=== PATIENT | male | born 1940 | race Caucasian/White ===

== ENCOUNTER 2016-10-27 09:18 | Inpatient (IN) | payer MEDICARE, BC ==
[~2016-10-27] VITALS: Ht 170.2 cm; Wt 108.9 kg
--- NOTE | ~2016-10-27 | ECH ---
Transthoracic Echocardiography Report (TTE) Demographics Patient Name MATTHIEU GUAJARDO Date of Study 10/27/2016 ELIZABETH Patient Number [id number] Visit Number [id number] Date of 1940 Room Number 428 Accession Number [id number] Gender Male Age 76 year(s) Referring Renate Hernandez MD Human Resources Project Coordinator Vicki Lee Physician RDCS Physician Interpreting Natacha OBRIEN Oreman Physician Uche Supervising Ordering Physician Renate Hernandez MD/[place] OBRIEN Nurse Stress Arts Administrator Or Manager Conclusions Contractility Score Summary Global Left Ventricular Hypokinesis was noted. Summary Technically good exam. The estimated left ventricular ejection fraction is 25-30%. The left ventricle is moderately dilated . Mild concentric left ventricular hypertrophy. Normal right ventricle structure with reduced function. The left atrium is severely dilated by LA volume index measurement. The right atrium is moderately dilated. Moderate to severe mitral regurgitation by color Doppler. There is mild aortic regurgitation by color Doppler. Mild-moderate tricuspid regurgitation by color Doppler. There is mild pulmonary hypertension. The pulmonary pressure (RVSP) is 39 mmHg. Recommendation The patient will be given the results of this study by the physician who ordered the exam. Procedure Type of Study TTE procedure:Echo Complete SF. Procedure Date Date: 10/27/2016 Start: 02:30 PM Technical Quality: Good visualization Indications:Congestive heart failure, Dyspnea with exertion, Atrial fibrillation, Elevated Troponin, Coronary artery disease, Diabetes, pacemaker/defibrillator and History of CABG. Additional Indications:History of stent Appropriate Use Criteria: 9 Height: 67 inches Weight: 247 pounds BSA: 2.21 m Rhythm: Paced HR: 73 bpm BP: 122/72 mmHg M-Mode/2D Measurements LV Diastolic Dimension: 6.55 cm LV Systolic Dimension: 5.65 cm LV Septum Diastolic: 1.14 cm LV PW Diastolic: 1.16 cm AO Root Dimension: 3.37 cm Cardiac Output: 4.13 l/min LA Dimension: 5.23 cm Cardiac Index: 1.87 l/min*m RV Diastolic Dimension: 4.2 cm LA volume index: 58 ml/m LVOT: 2.13 cm LVOT VTI: 15.89 cm RV Base: 3.8 cm LV Stroke volume: 56.59 ml RV Mid: 2.2 cm LV Stroke volume index: 25.61 ml/m TAPSE: 1.5 cm TDI-S': 8 cm/s Doppler Measurements AV Peak Velocity: 1.1 m/s MV Peak E-Wave: 1.43 m/s AV Peak Gradient: 4.84 mmHg AV Mean Gradient: 2.29 mmHg MV P1/2t: 71.4 msec LVOT Peak Velocity: 0.88 m/s AV Area (Continuity):4.16 cm AV P1/2t: 426.6 msec MV Area (PHT): 3.08 cm TR Velocity:2.99 m/s PV Peak Velocity: 0.83 m/s TR Gradient:35.76 mmHg PV Peak Gradient: 2.76 mmHg Estimated RAP:3 mmHg Estimated PASP: 38.76 mmHg Estimated RVSP: 39 mmHg E' Septal Velocity: 0.09 m/s E' Lateral Velocity: 0.12 m/s RA Area: 25.05 cm Findings Left Ventricle The left ventricle is moderately dilated . Mild concentric left ventricular hypertrophy. Diastolic function indeterminate due to patient's arrhythmia. Right Ventricle Normal right ventricle structure with reduced function. Left Atrium The left atrium is severely dilated by LA volume index measurement. Right Atrium The right atrium is moderately dilated. Mitral Valve Normal mitral valve structure and function. Moderate to severe mitral regurgitation by color Doppler. Aortic Valve The aortic valve is mildly sclerotic. There is mild aortic regurgitation by color Doppler. Tricuspid Valve Normal tricuspid valve structure and function. Mild-moderate tricuspid regurgitation by color Doppler. There is mild pulmonary hypertension. The pulmonary pressure (RVSP) is 39 mmHg. Pulmonic Valve Normal pulmonic valve structure and function. Mild pulmonic valve regurgitation by color Doppler. Pericardial Effusion No evidence of pericardial effusion. Miscellaneous Visualized portions of the aortic root and ascending aorta appear normal in size. Pleural Effusion No evidence of pleural effusion. Contractility Score LV regional wall motion:(0-Non visualized 1-Normal 2-Hypokinesis 3-Akinesis 4-Dyskinesis 5-Aneurysm) Signature
--- NOTE | 2016-10-27 14:22 | ER ---
ADMIT: 10/27/2016 RM/LOC: [facility] MR#: [id number] 26[address] [facility] [address] [place], [place] [address] MATTHIEU GUAJARDO ELIZABETH [address] [place] [address] Emergency Room Report SEX: M AGE: 76 : 1940 DATE: 10/27/2016 TIME: 0918 hours. Please refer to my T-sheet for complete H and P. Briefly, the patient is a 76-year-old who has a known history of heart disease. He has had a bypass in 2001, he had a stent in 2015, and a pacer in 2015. He has a history of atrial fibrillation, he takes Coumadin. He states though the last couple days he has had significant dyspnea on exertion. He was at the hospital visiting son who had an elective surgery when he noticed that he could hardly walk down the hercules. He got really short of breath. They had to sit down. His says it is getting worse for the last 24-48 hours. His legs have not been swollen more than usual. He has been taking all his medications. PHYSICAL EXAMINATION: VITAL SIGNS: Blood pressure 136/68, pulse 78, respirations 20, temp 98, and sat 94%. GENERAL: He is in no acute distress. HEENT: Grossly normal. LUNGS: Clear. HEART: Regular. ABDOMEN: Soft. EXTREMITIES: He has 1+ edema. EMERGENCY DEPARTMENT COURSE: His EKG was paced, rate 70. CBC normal except platelets 141. Chemistries normal except glucose 213. Troponin 0.13. His BNP was 4212. His INR was 1.73. I gave him 4 aspirin, Lasix 60 mg IV. He had no symptoms while at rest. I talked to Dr. Dewitt, will admit to the hospital. ASSESSMENT: 1. Acute dyspnea on exertion. 2. Elevated troponin. 3. Congestive heart failure. PLAN: Admit to the hospital. Gigi Hoff MD/ troy JOB #: [id number] CC: Gigi Hoff MD, Attending Physician UNKNOWN, Family Physician
[2016-10-31] MEDS ORDERED: AVODART0.5 MG PO (13:52)
[2016-10-31] MEDS ORDERED: PROZAC40 MG PO (13:52)
[2016-10-31] MEDS ORDERED: NITROSTAT0.4 MG SL (13:52)
[2016-10-31] MEDS ORDERED: MICRO-K DPS10 MEQ PO (13:53)
[2016-10-31] MEDS ORDERED: ZOCOR DPS40 MG PO (13:53)
[2016-10-31] MEDS ORDERED: ZESTRIL DPS10 MG PO (13:53)
[2016-10-31] MEDS ORDERED: COUMADIN4 MG PO (13:53)
[2016-10-31] MEDS ORDERED: DESYREL DPS100 MG PO (13:53)
[2016-10-31] MEDS ORDERED: CALCIUM + VITA1 EACH PO (13:54)
[2016-10-31] MEDS ORDERED: FLOMAX DPS0.4 MG PO (13:54)
[2016-10-31] MEDS ORDERED: LASIX DPS40 MG PO (13:54)
[2016-10-31] MEDS ORDERED: ECOTRIN81 MG PO (13:54)
[2016-10-31] MEDS ORDERED: VITAMIN C1000 MG PO (13:55)
[2016-10-31] MEDS ORDERED: L-LYSINE500 M1 PO (13:55)
[2016-10-31] MEDS ORDERED: VITAMIN D-32000 UNI1 PO (13:55)
[2016-10-31] MEDS ORDERED: CARVEDILOL3.125 MG PO (13:56)
[2016-10-31] MEDS ORDERED: ZINC50 M1 PO (13:56)
--- NOTE | 2016-11-02 10:30 | CO ---
ADMIT: 10/27/2016 RM/LOC: [address] [facility] MR#: [id number] 2620 [facility] [address] [place], [place] [address] MATTHIEU GUAJARDO [address] [place] [address] Consultation SEX: M AGE: 76 : 1940 DATE OF CONSULTATION: 10/28/2016 ATTENDING PHYSICIAN: Renny Dewitt CONSULTING PHYSICIAN: uGs Melara MD CHIEF COMPLAINT: Shortness of breath. HISTORY OF THE PRESENT ILLNESS: The patient is a 76-year-old male, who has a long-standing history apparently of coronary disease, atrial fibrillation, pacemaker placement, who presented with shortness of breath. He states for the last couple of days, he has noticed that he has been more short of breath especially with activity. When he walks several feet, he will get short of breath and this has been unusual for him. He has not really appreciated a lot of edema, but after receiving some Lasix, he states that he has had some diuresis. He has a previous history of heart disease including bypass surgery, stenting, atrial fibrillation, and pacemaker placement, but has never been told that he is aware that his heart muscle is weak. He also was noted to have a mildly elevated troponin. We are seeing him for further evaluation. PAST MEDICAL HISTORY: Significant for: 1. Three-vessel bypass surgery performed in 2001. 2. History of heart catheterizations in the past, the most recent in 2015, at which time he got a stent. 3. History of a left and right total knee arthroplasties. 4. Cataract surgery. 5. History of back surgery due to a herniated disk. 6. Cholecystectomy. 7. History of compartmental syndrome requiring fasciotomy in 2013 of his right leg with a skin graft afterwards. 8. Right shoulder surgery x2. 9. History of pacemaker placement in February of 2016. 10.Permanent atrial fibrillation. 11.BPH. 12.Hypertension. 13.Hyperlipidemia. ALLERGIES: APPEARS NONE. MEDICATIONS: Current hospital medications include: 1. Aspirin 81 mg daily. 2. Avodart 0.5 mg daily. 3. Caltrate with vitamin D 600 mg daily. 4. Coumadin daily. 5. Desyrel 100 mg at night. 6. Flomax 0.4 mg daily. 7. Lasix 20 mg daily. 8. Micro-K 10 mEq at night. 9. Prozac 40 mg daily. ADMIT: 10/27/2016 RM/LOC: 428 [facility] MR#: [id number] [address] [address] MATTHIEU GUAJARDO [address] [place] [address] Consultation SEX: M AGE: 76 : 1940 10.Vitamin D 2000 units daily. 11.Zestril 10 mg daily. 12.Zocor 40 mg at night. FAMILY HISTORY: The patient thinks that his father may have had coronary disease. He is unaware of anybody else with coronary disease. SOCIAL HISTORY: The patient has previous history of smoking a pipe and cigars, but no regular cigarette use. No significant alcohol use. 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 REVIEW OF SYSTEMS: GENERAL: Denies fatigue, fever, chills, sweats, rash, or weight loss. EYES: Denies double vision, blurred vision, cataracts, or glaucoma. ENT: Denies hearing loss or problems with nose, mouth or throat. PULMONARY: He has some occasional shortness of breath. Denies cough, sputum production, asthma, emphysema or bronchitis. Denies snoring loudly, wakefulness at night, or fatigue upon awakening. GASTROINTESTINAL: Denies heartburn or difficulty swallowing. No change in bowel habits. Denies dark or bloody stools. No history of ulcers, hiatal hernia, or gallbladder or liver disease. GENITOURINARY: He has occasional dysuria and some constipation. Denies hematuria, nocturia, urinary tract infection, or kidney stones. Denies history of renal insufficiency or failure. MUSCULOSKELETAL: He does have some leg pain and arm pain. Denies history of arthritis or gout. ENDOCRINE: Denies history of thyroid dysfunction or diabetes. HEMATOLOGIC: Denies history of anemia, easy bruising, or cancer. NEUROLOGIC: Denies chronic headaches, dizziness, syncope, stroke, seizures or numbness or tingling. PSYCHIATRIC: Denies history of mental illness or feelings of depression. PHYSICAL EXAMINATION: VITAL SIGNS: Blood pressure 122/71, heart rate 60, respirations 18, temperature 96.9 degrees Fahrenheit. SKIN: [place], warm and dry. EYES: Sclerae clear. No xanthelasmas. ENT: Oral mucosa is pink and moist. No jugular venous distention or carotid bruits. CHEST: Lungs having diminished breath sounds. HEART: Regular rate and rhythm. Normal S1, S2. No murmurs, rubs or gallops. ABDOMEN: Soft and nontender. MUSCULOSKELETAL: Gait is normal. EXTREMITIES: Having mild edema. Peripheral pulses palpable. No clubbing or cyanosis. PSYCHIATRIC: Alert and oriented. Mood and affect are appropriate. ASSESSMENT: 1. Acute on chronic systolic heart failure. ADMIT: 10/27/2016 RM/LOC: 428 [facility] MR#: [id number] [address] [place] [id number] MATTHIEU GUAJARDO [address] [place] [address] Consultation SEX: M AGE: 76 : 1940 2. Ischemic cardiomyopathy. 3. Permanent atrial fibrillation. 4. Coronary artery disease. 5. Permanent pacemaker. 6. Hypertension. PLAN: The patient's echocardiogram shows that his ejection fraction looks to be in the 35% range. This may be new, although it is unsure whether he has been told of this diagnosis. We will continue with diuresis as I believe most of his symptoms are acute on chronic systolic heart failure. He also has a mildly elevated troponin which has remained stable. If he has not had an ischemic evaluation recently, this also may need to occur. He does have a pacemaker in place. His ejection fraction is down, so I would like to get records to see if this is known, and if his ejection fraction was normal in the past, probably needs a repeat heart catheterization. We will decide further management and treatment after we see the results of his testing and his records. I am also going to add Coreg 3.125 mg twice daily to his current med regimen. Gus Melara MD/ troy JOB #: [id number] CC: Renny Dewitt, Attending Physician Renny Dewitt, Family Physician Renny Dewitt MD
--- NOTE | 2016-11-03 12:00 | DS ---
ADMIT: 10/27/2016 RM/LOC: 428 [facility] MR#: [id number] 26[address] [facility] [address] [place], [place] [address] MATTHIEU GUAJARDO ELIZABETH [facility] [place] [address] Discharge Summary SEX: M AGE: 76 : 1940 ADMISSION DATE: 10/27/2016 DISCHARGE DATE: 10/30/2016 ATTENDING AT TIME OF DISCHARGE: Damion Barrett MD. ADMITTING PHYSICIAN: Renny Dewitt MD. FINAL DIAGNOSES: 1. Ekexj-as-hlxaovo systolic heart failure exacerbation. 2. Elevated troponin, equivocal. 3. Coronary artery disease, status post coronary bypass. 4. A fib (atrial fibrillation), on chronic anticoagulation. 5. Obstructive sleep apnea. 6. History of back surgery, cholecystectomy, compartmental syndrome with fasciotomy, shoulder surgery, history of pacemaker placement. 7. BPH (benign prostatic hypertrophy). 8. Hypertension. 9. Hyperlipidemia. 10.History of total knee replacements bilaterally. REASON FOR ADMISSION: Increasing shortness of breath. HOSPITAL COURSE: The patient was admitted. He had a very mildly elevated troponin, which was essentially equivocal. Likely related to exacerbation of acute systolic heart failure exacerbation. The patient was given IV diuresis with a 7 pound weight loss. Kidney function remained stable. INR at 2 at time of discharge. In regard to his atrial fibrillation and anticoagulation, he was seen in evaluation by Cardiology, Dr. Melara and Dr. Lenz. He overall felt symptomatically much improved. Prospect okay for discharge to home with plan for followup with Dr. Davila in [place] when next available, increased oral diuretic, PT/INR, BMP at PCP's office within the week. He overall felt improved at time of discharge. DISCHARGE MEDICATIONS: Please see discharge MAR, which I fully reviewed. He will essentially be on his home medications except we will increase his Lasix from 20 mg to 40 mg a day. He will otherwise notably be on warfarin 4 mg a day. Please see discharge MAR for full details otherwise. He will have a PT/INR and BMP at followup in his primary care provider's office in 1 week as well as forwarding this to his teradata architect, Dr. Davila. Damion Barrett MD/ jessy JOB #: [id number] CC: Renny Dewitt MD, Attending Physician Renny Dewitt MD, Family Physician ADMIT: 10/27/2016 RM/LOC: [address] [facility] MR#: [id number] [address] [address] MATTHIEU GUAJARDO [address] [place] [address] Discharge Summary SEX: M AGE: 76 : 1940 Leonidas Davila MD
--- NOTE | 2016-11-20 08:54 | HP ---
ADMIT: 10/27/2016 RM/LOC: 428 [facility] MR#: [id number] 2620 [facility] [address] [place], [place] [address] MATTHIEU GUAJARDO [facility] [place] [address] History and Physical SEX: M AGE: 76 : 1940 DATE OF SERVICE: CHIEF COMPLAINT: Shortness of breath. HISTORY OF PRESENT ILLNESS: This is a 76-year-old gentleman walking to cafeteria today was noted to be having increased shortness of breath. He presented to the emergency room. He was found to be in heart failure, so he was admitted, he was also needing a little oxygen. He says he just has been more winded of late. He thinks he has been swelling up a little bit in his belly which is not necessarily new for him, but thinks it is getting worse. He has been progressively getting to be more winded over the past month, he thinks. He has some associated trouble breathing. Denies overt chest pain, however. PAST HISTORY: Significant for coronary artery disease, arthritis, degenerative disk disease in his back, history of compartment syndrome of the right leg, he has had atrial fibrillation, BPH, hypertension, and hyperlipidemia. SURGERIES: Include pacemaker; fasciotomy in 2013, right leg with skin graft placement; he has had a cholecystectomy; back surgery; bilateral total knee arthroplasties; 3-vessel bypass in 2001; had a stent placed in 2016 with a heart cath. ALLERGIES: NONE. MEDICATIONS: See his admission medication list. FAMILY HISTORY: I think his dad had heart disease, but unknown. The patient has a previous history of smoking a pipe and cigars. He is retired school curriculum developer and occasional farming now. REVIEW OF SYSTEMS: Other complete review of systems obtained and negative except as above. PHYSICAL EXAMINATION: VITAL SIGNS: Temp 98.1, pulse 67, respirations 20, blood pressure 122/72, oxygen saturation 100% on 2 L of oxygen by nasal cannula. GENERAL: This is an overweight appearing 76-year-old gentleman in no apparent distress. He is alert and oriented. HEENT: Pupils are equal, round, and reactive to light and accommodation. Extraocular muscles intact. Throat clear. NECK: Supple. LUNGS: Clear bilaterally. HEART: Irregular regular and diminished. ABDOMEN: Protuberant and mildly distended. EXTREMITIES: Lower extremities have 3+ pitting edema to lower extremities bilaterally. SKIN: Pale, warm, and dry. ADMIT: 10/27/2016 RM/LOC: 428 [facility] MR#: [id number] [address] [address] MATTHIEU GUAJARDO [address] [place] [address] History and Physical SEX: M AGE: 76 : 1940 NEURO: He can move all extremities equally bilaterally, but he is quite weak. LABORATORY AND X-RAY DATA: Initial workup for ischemia is negative. ASSESSMENT/PLAN: 1. Shortness of breath. 2. Congestive heart failure, acute systolic on chronic systolic with diastolic component as well. We did have a mildly elevated troponin. 3. Coronary artery disease. 4. Possible history of diabetes. He will be admitted to telemetry. Watch his troponin, trend closely. I suspect it is not an NV, but related to heart failure. Check an echo and continue to diurese and we will go from there. Renny Dewitt MD/ troy JOB #: [id number] CC: Renny Dewitt MD, Attending Physician Renny Dewitt MD, Family Physician
== END 2016-10-30 12:35 | disposition home or self-care (01) | DRG 293 ==
LOC: ER 09:18 → 4PCU 11:25
PROVIDERS: ADMIT Internal Medicine
DX: I11.0 Hypertensive heart disease with heart failure (principal); I48.2 Chronic atrial fibrillation; I25.5 Ischemic cardiomyopathy; I34.0 Nonrheumatic mitral (valve) insufficiency; I50.23 Acute on chronic systolic (congestive) heart failure; E78.5 Hyperlipidemia, unspecified; N40.0 Benign prostatic hyperplasia without lower urinary tract symptoms; G47.33 Obstructive sleep apnea (adult) (pediatric); K59.00 Constipation, unspecified; Z95.1 Presence of aortocoronary bypass graft; Z95.5 Presence of coronary angioplasty implant and graft; Z95.0 Presence of cardiac pacemaker; Z79.01 Long term (current) use of anticoagulants; Z96.653 Presence of artificial knee joint, bilateral; Z79.82 Long term (current) use of aspirin; Z87.891 Personal history of nicotine dependence